=== PATIENT | female | born 1980 | race Caucasian/White ===

== ENCOUNTER 2021-12-07 10:41 | Outpatient (CLI) | payer OTHER, SELFPAY ==
[2021-12-07 12:24] LABS: Vitamin B12 543 pg/mL (211-911)
[2021-12-07 12:35] LABS: Ferritin 216 ng/mL (8-252); T4 Free Direct 0.85 ng/dL (0.76-1.46); Thyroid Stim Hormone (TSH) 2.13 uIU/mL (0.358-3.74)
[2021-12-10 08:09] LABS: Anti-Nuclear Antibody Test Negative (.)
[2021-12-11 15:02] LABS: Zinc, Plasma or Serum 96 ug/dL (44-115)
== END 2021-12-07 23:59 | disposition home or self-care (01) ==
LOC: MTLAB 10:46
PROVIDERS: PCP Family Medicine; Referring Provider Physician Assistant Medical; Visit Provider Physician Assistant Medical
DX: L64.8 Other androgenic alopecia (principal); L65.0 Telogen effluvium
CPT/HCPCS: 36415; 82607; 82728; 82746; 84439; 84443; 84630; 86038